=== PATIENT | male | born 1960 | race Caucasian/White ===

== ENCOUNTER 2019-09-05 22:49 | Inpatient (IN) | payer BC ==
[~2019-09-05] VITALS: Ht 167.6 cm; Wt 71.7 kg
[2019-09-05 22:55] VITALS: Ht 167.6 cm; Wt 71.7 kg
[2019-09-05 23:30] LABS: BASOPHIL % 0.7 % (0-2); RED CELL DISTRIBUTION WIDTH 13.8 % (11.5-14.5)
[2019-09-05 23:31] LABS: PLATELET COUNT 452 x10^3mcL (130-400)
[2019-09-05 23:42] LABS: CALCIUM 9.3 mg/dL (8.5-10.1); CHLORIDE SERUM 98 mmol/L (98-107); CREATININE SERUM 0.8 mg/dL (0.7-1.3); GFR1 > 60 mL/min; GLUCOSE SERUM 110 mg/dL (74-106); POTASSIUM SERUM 4.3 mmol/L (3.5-5.1); SODIUM SERUM 135 mmol/L (136-145)
[2019-09-05 23:47] LABS: ALKALINE PHOSPHATASE 64 U/L (46-116); ALT/SGPT 25 U/L (16-63); AST/SGOT 17 U/L (15-37); BILIRUBIN TOTAL 0.5 mg/dL (0.20-1.00); TOTAL PROTEIN, SERUM 7.9 g/dL (6.4-8.2)
[2019-09-05 23:51] LABS: ALBUMIN 3.1 g/dL (3.4-5.0)
[2019-09-06] MEDS ORDERED: ULTRAM50 MG PO (01:31)
[2019-09-06] MEDS ORDERED: NAPROXEN SODIU220 MG PO (01:31)
[2019-09-06] MEDS ORDERED: ATORVASTATIN CA10 M1 PO (01:31)
[2019-09-06 02:30] VITALS: BP 154/98
[2019-09-06 05:45] VITALS: BP 156/71
[2019-09-06 05:50] VITALS: BP 137/90
[2019-09-06 10:17] VITALS: BP 147/103
[2019-09-06 13:37] VITALS: BP 125/82
[2019-09-06] MEDS ORDERED: ZES20 PO (15:06)
[2019-09-06 15:19] VITALS: BP 125/82
[2019-09-06] MEDS ORDERED: MOT800 PO (15:26)
[2019-09-06] MEDS ORDERED: PRI20 PO (15:26)
== END 2019-09-06 17:35 | disposition home or self-care (01) | DRG 206 ==
LOC: ED 22:49 → DU 09-06 00:24
PROVIDERS: Emergency Medicine; Internal Medicine; ADMIT Family Medicine; ATTEND Family Medicine
DX: M94.0 Chondrocostal junction syndrome [Tietze] (principal); E87.1 Hypo-osmolality and hyponatremia; F41.9 Anxiety disorder, unspecified; E78.00 Pure hypercholesterolemia, unspecified; E78.5 Hyperlipidemia, unspecified; R73.9 Hyperglycemia, unspecified; Z79.899 Other long term (current) drug therapy
CPT/HCPCS: 83880; G0378; J1885; J2270; J3010; Q0092